=== PATIENT | female | born 1965 | race Caucasian/White ===

== ENCOUNTER 2018-02-04 13:50 | Emergency (ER) | payer MEDICARE ==
[2018-02-04] MEDS ORDERED: KETOROLAC TROMETHAMINE INJ/PF 30 MG/1 ML SDV IM ONE (15:58)
--- NOTE | 2018-02-04 16:01 | ER Document Report ---
ED Fall - General Chief Complaint: Fall Injury Stated Complaint: FALL INJURY Time Seen by Provider: 02/04/18 15:48 Mode of Arrival: Ambulatory Information source: Patient TRAVEL OUTSIDE OF THE [place] IN LAST 30 DAYS: No - HPI Patient complains to provider of: FALL, PAIN TO LEFT RIBS, WRIST, KNEE AND LOW BACK Occurred: Yesterday Where: Home Notes: Patient is here with complaints of pain after falling yesterday. She states that she stepped in a hole that 1 of her dog had dug in her yard yesterday while walking and fell on her left side. Since that time she has left rib pain , left wrist pain, left knee pain. She also complains of some mild low back pain. She has had prior lumbar surgery with fusion and hardware. She has chronic pain and is on MS Contin as well as immediate release oxycodone. She denies striking her head. She denies loss of consciousness. She denies blurred or loss vision. She denies numbness, Unruly, weakness. No abdominal pain. No nausea, vomiting, diarrhea. No bowel or bladder dysfunction. Pain is worse with movement, better with rest. She denies any other complaints at this time. - Related data Allergies/Adverse Reactions: adhesive tape Allergy (Verified 02/04/18 13:52) meperidine [From Demerol] Allergy (Verified 02/04/18 13:51) Past Medical History - Social History Smoking Status: Unknown if Ever Smoked Family History: Reviewed & Not Pertinent Review of Systems - Review of Systems -: Yes All other systems reviewed and negative Physical Exam - Vital signs Vitals: Temp Pulse Resp BP Pulse Ox 98.2 F 85 18 142/99 H 98 02/04/18 14:37 02/04/18 14:37 02/04/18 14:37 02/04/18 14:37 02/04/18 14:37 - Notes Notes: GENERAL: alert, cooperative, nontoxic, no distress. HEAD: normocephalic, atraumatic EYES: conjunctiva pink without discharge, no external redness or swelling. EARS: no external swelling, no external redness. No hemotympanum EM NOSE: atraumatic, no external swelling. No bleeding MOUTH/THROAT: mucous membranes moist and pink, posterior pharynx without erythema, swelling, exudate. No trismus or drooling. NECK: soft, supple, full range of motion, no meningismus. No midline tenderness step-offs or crepitus to palpation of the cervical spine. CHEST: no distress, lungs clear and equal throughout. No wheezing, rales, rhonchi. Redness palpation of the left lateral ribs. No crepitus. No bruising. CARDIAC: regular rate and rhythm, no murmur, normal capillary refill, normal pulses. No peripheral edema noted. ABDOMEN: Soft, nontender. No ecchymosis. BACK: full range of motion, no CVA tenderness. No midlinestep-offs or crepitus to palpation of the thoracic or lumbar spine. Mild midline lumbar spinal tenderness to palpation. EXTREMITIES: full range of motion of all extremities. No redness, no swelling. NEURO: alert and oriented x 3, no focal deficits, full range of motion of all extremities. Normal sensation bilaterally. Normal strength bilaterally. PYSCH: appropriate mood, affect. Patient is cooperative. SKIN: pink, warm, dry, no rash. Course - Re-evaluation Re-evalutation: 02/04/18 17:33 The patient is nontoxic appearing with stable vitals. The patient tripped and fell yesterday at home injuring her left ribs left wrist and left knee. She is chronic back pain states that her back is hurting somewhat more than normal as well. She has a nonfocal neuro exam with no signs of cauda equina. Lungs are clear. She is not hypoxic. She has no signs of significant trauma. She has no abdominal tenderness on exam. X-rays of the left ribs with chest, left wrist , left knee, lumbar spine show no acute findings per the radiologist. The patient is currently on chronic pain medication including MS Contin and oxycodone. She states that she spoke with her pain specialist who told her that we could write her for more pain medication if it was for an acute problem. That I do not feel comfortable writing for any sort of narcotic medication when she is on high-dose narcotics already, and she should discuss this with her pain management doctor if she feels that she needs further narcotic medication. I am happy to write her for NSAIDs to help augment her pain control medication she already has at home. She is given a shot of Toradol here and states she feels significantly better and would like a prescription for Toradol to go home with. I explained that I can write her a short course of Toradol orally but that she should not take her Celebrex while she is taking the Toradol. She verbalized understanding of this. The patient is noted to have elevated blood pressure during today's emergency department visit. The patient was informed of this finding. The patient was instructed that this may be related to pre-hypertension and requires further evaluation with a primary care provider. The patient has no hypertensive symptoms at this time. The patient's emergency department workup and current diagnosis were explained to the patient and or family. Follow-up instructions were provided. Medications if prescribed were discussed. Instructions for when to return to the emergency department including specific worrisome symptoms were discussed with the patient and/or family. - Vital Signs Vital signs: Temp Pulse Resp BP Pulse Ox 98.2 F 85 18 142/99 H 98 02/04/18 14:37 02/04/18 14:37 02/04/18 14:37 02/04/18 14:37 02/04/18 14:37 - Diagnostic Test Radiology reviewed: Image reviewed, Reports reviewed - Left ribs with chest, left knee, left wrist, lumbar spine show no acute abnormality per the radiologist. Discharge - Discharge Clinical Impression: Contusion of rib on left side Qualifiers: Encounter type: initial encounter Qualified Code(s): S20.212A - Contusion of left front wall of thorax, initial encounter Left wrist sprain Qualifiers: Encounter type: initial encounter Qualified Code(s): S63.502A - Unspecified sprain of left wrist, initial encounter Left knee sprain Qualifiers: Encounter type: initial encounter Involved ligament of knee: other ligament Qualified Code(s): S83.8X2A - Sprain of other specified parts of left knee, initial encounter Condition: Stable Disposition: HOME, SELF-CARE Instructions: Ice & Elevation ([facility]), Chest Wall Pain ([facility]), Wrist Sprain ([facility]) Additional Instructions: Take medications as prescribed. Do not take your Celebrex while taking the Toradol. Rest, ice, elevate injuries. Follow-up with your doctor if not better in 1 week, sooner for increasing pain, high fever, difficulty breathing,' s, tingling, weakness, difficulty controlling her bowels or bladder, or for any further concerns. Your blood pressure was elevated during today's visit. Have this rechecked with your doctor. Prescriptions: Ketorolac Tromethamine [Toradol 10 mg Tablet] 10 mg PO Q6HP PRN #12 tablet PRN Reason: Forms: Elevated Blood Pressure, Smoking Cessation Education
--- NOTE | 2018-02-04 16:30 | RADIOLOGY REPORT (SQ) ---
EXAM DESCRIPTION: L SPINE WHOLE COMPLETED DATE/TIME: 02/04/2018 4:17 pm REASON FOR STUDY: FALL, PAIN COMPARISON: None. NUMBER OF VIEWS: Five views including obliques. TECHNIQUE: AP, lateral, oblique, and sacral radiographic images acquired of the lumbar spine. LIMITATIONS: None. FINDINGS: MINERALIZATION: Normal. SEGMENTATION: Normal. No transitional anatomy. ALIGNMENT: Normal. VERTEBRAE: Maintained height. No fracture or worrisome bone lesion. DISCS: Preserved height. No significant osteophytes or end plate irregularity. POSTERIOR ELEMENTS: Pedicles and facets are intact. No pars defect or posterior arch defects. Juan ectomy changes at L5. HARDWARE: Posterior rods from L4-S1 with screws through the pedicles. PARASPINAL SOFT TISSUES: Normal. PELVIS: Intact as visualized. No fractures or worrisome bone lesions. SI joints intact. OTHER: No other significant finding. IMPRESSION: Surgical changes with no acute abnormality. TECHNICAL DOCUMENTATION: JOB ID: [id number] [employer]- All Rights Reserved Reading location - IP/workstation name: [email or web address]
--- NOTE | 2018-02-04 16:58 | RADIOLOGY REPORT (SQ) ---
EXAM DESCRIPTION: RIBS LEFT W/PA CHEST COMPLETED DATE/TIME: 02/04/2018 4:46 pm REASON FOR STUDY: FALL, PAIN COMPARISON: None. TECHNIQUE: Frontal view of the chest and additional views of the left ribs acquired. NUMBER OF VIEWS: Three view. LIMITATIONS: None. FINDINGS: FRONTAL CXR: No pneumothorax. No pleural effusion. No atelectasis or infiltrates. RIBS: No displaced rib fractures. No lytic or blastic bony lesions. OTHER: No other significant finding. IMPRESSION: NO PNEUMOTHORAX. NO DISPLACED RIB FRACTURES. COMMENT: SITE OF TRAUMA/COMPLAINT MARKED/STAMP COMPLETED: YES. TECHNICAL DOCUMENTATION: JOB ID: [id number] [employer]- All Rights Reserved Reading location - IP/workstation name: [email or web address]
--- NOTE | 2018-02-04 16:59 | RADIOLOGY REPORT (SQ) ---
EXAM DESCRIPTION: WRIST LEFT 3 VIEWS COMPLETED DATE/TIME: 02/04/2018 4:46 pm REASON FOR STUDY: FALL, PAIN COMPARISON: None. NUMBER OF VIEWS: Three views. TECHNIQUE: AP, lateral, and oblique radiographic images acquired of the left wrist. LIMITATIONS: None. FINDINGS: MINERALIZATION: Normal. BONES: No acute fracture or dislocation. No worrisome bone lesions. Normal alignment. SOFT TISSUES: No soft tissue swelling. No foreign body. OTHER: No other significant finding. IMPRESSION: NEGATIVE STUDY OF THE LEFT WRIST. NO RADIOGRAPHIC EVIDENCE OF ACUTE INJURY. TECHNICAL DOCUMENTATION: JOB ID: [id number] [employer]- All Rights Reserved Reading location - IP/workstation name: [email or web address]
--- NOTE | 2018-02-04 17:00 | RADIOLOGY REPORT (SQ) ---
EXAM DESCRIPTION: KNEE LEFT 3 VIEWS COMPLETED DATE/TIME: 02/04/2018 4:46 pm REASON FOR STUDY: FALL, PAIN COMPARISON: None. NUMBER OF VIEWS: Three views. TECHNIQUE: AP, lateral, and sunrise patella radiographic images acquired of the left knee. LIMITATIONS: None. FINDINGS: MINERALIZATION: Normal. BONES: No acute fracture or dislocation. No worrisome bone lesions. JOINT: No effusion. SOFT TISSUES: No soft tissue swelling. No radio-opaque foreign body. OTHER: No other significant finding. IMPRESSION: NEGATIVE STUDY OF THE LEFT KNEE. NO RADIOGRAPHIC EVIDENCE OF ACUTE INJURY. TECHNICAL DOCUMENTATION: JOB ID: [id number] [employer]- All Rights Reserved Reading location - IP/workstation name: [email or web address]
[2018-02-04 17:52] VITALS: BP 137/93
== END 2018-02-04 17:52 | disposition home or self-care (01) ==
LOC: ER 13:50
DX: S83.92XA Sprain of unspecified site of left knee, initial encounter (principal); S63.502A Unspecified sprain of left wrist, initial encounter; S20.212A Contusion of left front wall of thorax, initial encounter; W01.0XXA Fall on same level from slipping, tripping and stumbling without subsequent striking against object, initial encounter; Y92.007 Garden or yard of unspecified non-institutional (private) residence as the place of occurrence of the external cause; R03.0 Elevated blood-pressure reading, without diagnosis of hypertension; M54.5 Low back pain; Z79.891 Long term (current) use of opiate analgesic; Z98.1 Arthrodesis status; Z91.048 Other nonmedicinal substance allergy status; Z88.5 Allergy status to narcotic agent
CPT/HCPCS: 99283; 96372; 73562; 72110; 71101; 73110; J1885

== ENCOUNTER → 2018-10-08 | Outpatient (CLI) | payer OTHER, MEDICARE ==
[2018-10-08 13:38] LABS: INTERNATIONAL RATION (INR) 0.95; PROTHROMBIN TIME 13.1 SEC (11.4-15.4)
[2018-10-08 13:39] LABS: PARTIAL THROMBOPLASTIN TIME 32.9 SEC (23.5-35.8)
[2018-10-08 13:40] LABS: APPEARANCE,URINE CLEAR; BILIRUBIN,URINE NEGATIVE (NEGATIVE); COLOR,URINE YELLOW; GLUCOSE, URINE NEGATIVE (NEGATIVE); KETONES,URINE NEGATIVE (NEGATIVE); LEUKOCYTE ESTERASE,URINE NEGATIVE (NEGATIVE); NITRITE,URINE NEGATIVE (NEGATIVE); PROTEIN,URINE NEGATIVE (NEGATIVE); URINE SPECIFIC GRAVITY 1.015; UROBILINOGEN,URINE NEGATIVE mg/dL (<2.0)
[2018-10-08 14:08] LABS: ABSOLUTE EOSINOPHILS # (AUTO) 0.1 10^3/uL (0.0-0.6); ABSOLUTE LYMPHOCYTES (AUTO) 1.8 10^3/uL (0.5-4.7); ABSOLUTE MONOCYTES (AUTO) 0.3 10^3/uL (0.1-1.4); ABSOLUTE NEUT (AUTO) 3.6 10^3/uL (1.7-8.2); BASOPHILS % (AUTO) 0.4 % (0-2); EOSINOPHILS % (AUTO) 1.3 % (0-6); HEMATOCRIT 42.2 % (36.0-47.0); HEMOGLOBIN 14.7 g/dL (12.0-15.5); LYMPHOCYTES % (AUTO) 31.5 % (13-45); MEAN CORPUSCULAR HEMOGLOBIN 32.2 pg (27.0-33.4); MEAN CORPUSCULAR HGB CONC 34.8 g/dL (32.0-36.0); MEAN CORPUSCULAR VOLUME 92 fl (80-97); MONOCYTES % (AUTO) 5.8 % (3-13); PLATELET COUNT 361 10^3/uL (150-450); RED BLOOD COUNT 4.57 10^6/uL (3.72-5.28); RED CELL DISTRIBUTION WIDTH 13.3 % (11.5-14.0); TOTAL CELLS COUNTED % (AUTO) 100 %; WHITE BLOOD COUNT 5.8 10^3/uL (4.0-10.5)
== END ==
LOC: OD 12:14
PROVIDERS: ATTEND Student in an Organized Health Care Education/Training Program
DX: M96.1 Postlaminectomy syndrome, not elsewhere classified (principal)
CPT/HCPCS: 36415; 81001; 85025; 85610; 85730

== ENCOUNTER 2018-10-29 05:58 | Day surgery (SDC) | payer OTHER, MEDICARE ==
--- NOTE | 2018-10-25 13:22 | RADIOLOGY REPORT (SQ) ---
EXAM DESCRIPTION: CHEST PA/LATERAL COMPLETED DATE/TIME: 10/25/2018 1:15 pm REASON FOR STUDY: PRE-OP COMPARISON: None. EXAM PARAMETERS: NUMBER OF VIEWS: two views TECHNIQUE: Digital Frontal and Lateral radiographic views of the chest acquired. RADIATION DOSE: NA LIMITATIONS: none FINDINGS: LUNGS AND PLEURA: No opacities, masses or pneumothorax. No pleural effusion. MEDIASTINUM AND HILAR STRUCTURES: No masses or contour abnormalities. HEART AND VASCULAR STRUCTURES: Heart normal size. No evidence for failure. BONES: No acute findings. HARDWARE: None in the chest. OTHER: No other significant finding. IMPRESSION: NO SIGNIFICANT RADIOGRAPHIC FINDING IN THE CHEST. TECHNICAL DOCUMENTATION: JOB ID: [id number] [employer]- All Rights Reserved Reading location - IP/workstation name: [email or web address]
--- NOTE | 2018-10-25 13:33 | EKG REPORT ---
SEVERITY:- NORMAL ECG - SINUS RHYTHM : Confirmed by: Johnny Best MD 25-Oct-2018 13:32:48
[~2018-10-29 05:58] MED LIST: CEFAZOLIN 1 GM/D5W RTU 1 GM/50 ML RTUPB IV ONE; CEFAZOLIN 1 GM/D5W RTU 1 GM/50 ML RTUPB IV PRN; LACTATED RINGERS 1000 ML IV PRN; LIDOCAINE 0.5% INJ-PF (5 MG/ML) 50 ML SDV SUBCUT PRN
[2018-10-29] MEDS ORDERED: ALBUTEROL SULFATE 0.083% NEB 2.5 MG/3 ML AMPUL NEB ONE (06:51)
[2018-10-29] MEDS ORDERED: MIDAZOLAM 2 MG/2 ML INJ ONE (06:55)
[2018-10-29] MEDS ORDERED: FENTANYL CITRATE INJ/PF 100 MCG/2 ML AMPUL ONE (06:55)
[2018-10-29] MEDS ORDERED: ONDANSETRON HCL INJ/PF 4 MG/2 ML SDV ONE (06:55)
[2018-10-29] MEDS ORDERED: PROPOFOL INJ 200 MG/20 ML VIAL IV ONE ×2 (06:56→10:01)
[2018-10-29] MEDS: BUPIVACAINE HCL 0.25% /EPINEPHRINE INJ/PF 30 ML SDV ONE ×2 (07:51→08:09)
[2018-10-29] MEDS: SODIUM BICARBONATE 8.4% INJ 50 MEQ/50 ML DISP.SYRIN ONE ×2 (07:53→08:09)
[2018-10-29] MEDS: LIDOCAINE 1% INJ-PF (10 MG/ML) 30 ML SDV ONE ×2 (07:54→08:09)
[2018-10-29] MEDS ORDERED: DIPHENHYDRAMINE HCL 50 MG/ML VIAL IV PRN (08:30)
[2018-10-29] MEDS ORDERED: FENTANYL CITRATE INJ/PF 100 MCG/2 ML AMPUL IV PRN ×3 (08:30)
[2018-10-29] MEDS ORDERED: MORPHINE SULFATE 10 MG/ML INJ IV PRN (08:30)
[2018-10-29] MEDS ORDERED: PROMETHAZINE HCL INJ 25 MG/1 ML VIAL IV PRN (08:30)
[2018-10-29] MEDS ORDERED: BUPIVACAINE HCL 0.25% /EPINEPHRINE INJ/PF 30 ML SDV ONE (08:32)
[2018-10-29] MEDS ORDERED: CEFAZOLIN INJ 1 GM VIAL ONE (09:49)
[2018-10-29] MEDS: FENTANYL CITRATE INJ/PF 100 MCG/2 ML AMPUL ONE ×2 (10:00→10:05)
[2018-10-29] MEDS: HYDROMORPHONE HCL INJ/PF 2 MG/ML AMPULE ONE ×2 (10:20→10:40)
--- NOTE | 2018-10-29 10:29 | OPERATIVE REPORT E ---
Operative Report NAME: ORESTES FERNANDEZ : 1965 AGE: 53Y DATE OF SURGERY: 10/29/2018 ROOM: PREOPERATIVE DIAGNOSIS: 1. POSTLAMINECTOMY PAIN SYNDROME. 2. LUMBAR RADICULOPATHY. POSTOPERATIVE DIAGNOSIS: 1. POSTLAMINECTOMY PAIN SYNDROME. 2. LUMBAR RADICULOPATHY. OPERATION: Spinal cord stimulator implantation with percutaneous with dual lead, NIPG with [employer] system. SURGEON: ASHLEY ADAMS M.D. INFORMATION SYSTEMS PROJECT MANAGER: Veto Zuluaga M.D. ANESTHESIA: MAC. COMPLICATIONS: None. PROCEDURE IN DETAIL: After obtaining informed consent, I advised the patient of all the risks and benefits including serious neurologic injury, bleeding, infection, spinal fluid leak, allergic reaction, paralysis, nerve injury, , and failure to obtain satisfactory relief. She was taken to the operating room, placed comfortably in the prone position. MAC anesthesia was administered after application of monitoring. She was then prepped with ChloraPrep x2 and then draped after appropriate drying time. She was then evaluated at fluoroscopy and adequate space was found at T12-L1. The skin over both the pre-marked buttock incision on the right and the midline were anesthetized with 1% lidocaine with bicarbonate followed by 0.25% bupivacaine with epinephrine. Beginning at the midline incision, sharp and blunt dissection was performed down to the fascia. Using a left paramedian approach, a 14-gauge Tuohy needle was placed into the epidural space at T12-L1 level. Loss of resistance and saline was utilized beginning with the first needle. The electrode was advanced under fluoroscopic guidance to the mid of T8, being positioned in the midline. The second lead was placed with the second needle using the same technique with loss of resistance to saline using a right paramedian approach on the right side. Lateral views were taken that initially showed satisfactory placement. The leads were then tested and appropriate stimulation was found after discussion with the patient. Once again, the leads were then secured using pursestrings with anchors in place. These anchors were then sutured in place. The needles were removed sequentially. The pursestrings were secured and the anchor was placed and secured as well. While lead positioning was occurring, Veto Zuluaga M.D. was assisting in creating the pocket for the new pulse generator. As soon as the pocket was made, proper hemostasis was confirmed. The skin between tunneling was then performed using anesthesia 1% lidocaine and standard tunneling tool. Both incisions were felt to be satisfactory and proper hemostasis was confirmed. The wires were easily placed in the midline, stitched within the pocket and connected to the pulse generator, which was then tested and appropriate communication was made. All connections were secure. The generator was then placed in the pocket and assessed and found to be satisfactory. Position was again checked via fluoroscopy in both lateral and AP views. The wound were then copiously irrigated. The areas were then closed with interrupted vertical mattress suture using 3-0 Vicryl, arielle were not used. A 4-0 running subcuticular stitch was done in the midline. After appropriate placement, tape and Dermabond with *------* were used. OpSite dressings were then placed over the tape. The patient was taken to the PACU for further postoperative wound care and monitoring. DICTATING PHYSICIAN: ASHLEY ADAMS M.D. [id number] PHY#: [id number] ID: [id number] JOB#: [id number] ACCT: [id number] cc:ASHLEY ADAMS M.D. >
[2018-10-29] MEDS ORDERED: OXYCODONE HCL SR 10 MG TABLET PO ONE (10:43)
[2018-10-29] MEDS ORDERED: OXYCODONE HCL IR 5 MG TABLET ONE (10:47)
[2018-10-29] MEDS ORDERED: KETOROLAC TROMETHAMINE INJ/PF 30 MG/1 ML SDV ONE (11:40)
[2018-10-29] MEDS ORDERED: KETOROLAC TROMETHAMINE INJ/PF 30 MG/1 ML SDV IM ONE (12:00)
[2018-10-29 12:53] VITALS: BP 99/57
--- NOTE | 2018-10-29 13:13 | RADIOLOGY REPORT (SQ) ---
EXAM DESCRIPTION: THORACOLUMBAR SPINE AP/LAT COMPLETED DATE/TIME: 10/29/2018 12:59 pm REASON FOR STUDY: SPINAL STIMULATOR PLCMT DONE IN OR ASST WITH FLUORO G89.4 CHRONIC PAIN SYNDROME COMPARISON: None. FLUOROSCOPY TIME: 4.4 minutes 8 images saved to PACS. TECHNIQUE: Intra-operative images acquired during surgical procedure to evaluate progress. NUMBER OF IMAGES: 8 LIMITATIONS: None. FINDINGS: Images reveal epidural spinal lead placement in the thoracic spine, precise level not dete rmined based on limited field of view imaging. IMPRESSION: IMAGE(S) OBTAINED DURING PROCEDURE. COMMENT: Quality ID [id number]: Final reports for procedures using fluoroscopy that document radiation exp osure indices, or exposure time and number of fluorographic images (if radiation exposure indices are not available) Please consult full operative report of the attending physician for description of the procedure. TECHNICAL DOCUMENTATION: JOB ID: [id number] [employer]- All Rights Reserved Reading location - IP/workstation name: [email or web address]
== END 2018-10-29 12:20 | disposition home or self-care (01) ==
LOC: OROUT 05:58
PROVIDERS: ATTEND Student in an Organized Health Care Education/Training Program
DX: M96.1 Postlaminectomy syndrome, not elsewhere classified (principal); M54.16 Radiculopathy, lumbar region; I10 Essential (primary) hypertension; K21.9 Gastro-esophageal reflux disease without esophagitis; G89.4 Chronic pain syndrome; M79.10 Myalgia, unspecified site; F90.9 Attention-deficit hyperactivity disorder, unspecified type; Z79.899 Other long term (current) drug therapy; Z79.1 Long term (current) use of non-steroidal anti-inflammatories (NSAID); F45.42 Pain disorder with related psychological factors; Z79.891 Long term (current) use of opiate analgesic; Z87.891 Personal history of nicotine dependence
CPT/HCPCS: 63650; 63685; C1820; 1936; 71046; 72080; 81025; 93005; 93010; 94640; C1778; J0690; J1170; J1885; J2250; J2405; J2704; J3010; J3490

== ENCOUNTER 2019-04-29 09:05 | Day surgery (SDC) | payer OTHER, MEDICARE ==
--- NOTE | 2019-04-18 10:08 | RADIOLOGY REPORT (SQ) ---
EXAM DESCRIPTION: CHEST PA/LATERAL COMPLETED DATE/TIME: 04/18/2019 9:53 am REASON FOR STUDY: PRE-OP COMPARISON: Two-view chest 10/25/2018 EXAM PARAMETERS: NUMBER OF VIEWS: two views TECHNIQUE: Digital Frontal and Lateral radiographic views of the chest acquired. RADIATION DOSE: NA LIMITATIONS: none FINDINGS: LUNGS AND PLEURA: No opacities, masses or pneumothorax. No pleural effusion. MEDIASTINUM AND HILAR STRUCTURES: No masses or contour abnormalities. HEART AND VASCULAR STRUCTURES: Heart normal size. No evidence for failure. BONES: No acute findings. HARDWARE: Dorsal column stimulator electrodes over the midthoracic spine OTHER: No other significant finding. IMPRESSION: NO SIGNIFICANT RADIOGRAPHIC FINDING IN THE CHEST. TECHNICAL DOCUMENTATION: JOB ID: [id number] [employer]- All Rights Reserved Reading location - IP/workstation name: [email or web address]
[2019-04-18 10:49] LABS: APPEARANCE,URINE SLIGHTLY-CLOUDY; BILIRUBIN,URINE NEGATIVE (NEGATIVE); COLOR,URINE YELLOW; GLUCOSE, URINE NEGATIVE (NEGATIVE); KETONES,URINE NEGATIVE (NEGATIVE); LEUKOCYTE ESTERASE,URINE NEGATIVE (NEGATIVE); NITRITE,URINE NEGATIVE (NEGATIVE); PROTEIN,URINE NEGATIVE (NEGATIVE); URINE SPECIFIC GRAVITY 1.009; UROBILINOGEN,URINE NEGATIVE mg/dL (<2.0)
[2019-04-18 10:49] LABS: HEMOGLOBIN 15.9 g/dL (12.0-15.5); MEAN CORPUSCULAR HEMOGLOBIN 31.5 pg (27.0-33.4); MEAN CORPUSCULAR HGB CONC 33.9 g/dL (32.0-36.0); MEAN CORPUSCULAR VOLUME 93 fl (80-97); PLATELET COUNT 351 10^3/uL (150-450); RED BLOOD COUNT 5.06 10^6/uL (3.72-5.28); RED CELL DISTRIBUTION WIDTH 12.8 % (11.5-14.0); WHITE BLOOD COUNT 7.5 10^3/uL (4.0-10.5)
[2019-04-18 10:53] LABS: INTERNATIONAL RATION (INR) 0.88; PROTHROMBIN TIME 12.4 SEC (11.4-15.4)
[2019-04-18 10:54] LABS: PARTIAL THROMBOPLASTIN TIME 31.5 SEC (23.5-35.8)
--- NOTE | 2019-04-18 22:39 | EKG REPORT ---
SEVERITY:- ABNORMAL ECG - SINUS RHYTHM : Confirmed by: Federico Bates 18-Apr-2019 22:39:10
[~2019-04-29 09:05] MED LIST changes: -CEFAZOLIN 1 GM/D5W RTU 1 GM/50 ML RTUPB IV ONE
[2019-04-29] MEDS ORDERED: CEFAZOLIN 1 GM/D5W RTU 1 GM/50 ML RTUPB IV ONE (09:17)
[2019-04-29] MEDS ORDERED: SODIUM BICARBONATE 8.4% INJ 50 MEQ/50 ML DISP.SYRIN ONE (10:36)
[2019-04-29] MEDS ORDERED: LIDOCAINE 1% INJ-PF (10 MG/ML) 30 ML SDV ONE ×2 (10:36→10:44)
[2019-04-29] MEDS ORDERED: BUPIVACAINE HCL 0.5%-EPI 1:200000 INJ/PF 30 ML VIAL ONE (10:37)
[2019-04-29] MEDS ORDERED: FENTANYL CITRATE INJ/PF 100 MCG/2 ML AMPUL ONE (11:14)
[2019-04-29] MEDS ORDERED: MIDAZOLAM 2 MG/2 ML INJ ONE (11:14)
[2019-04-29] MEDS ORDERED: PROPOFOL INJ 200 MG/20 ML VIAL IV ONE (11:15)
[2019-04-29] MEDS ORDERED: ONDANSETRON HCL INJ/PF 4 MG/2 ML SDV IV PRN (11:51)
[2019-04-29] MEDS ORDERED: DIPHENHYDRAMINE HCL 50 MG/ML VIAL IV PRN (11:51)
[2019-04-29] MEDS ORDERED: OXYCODONE-ACETAMINOPHEN 5-325 MG TABLET PO PRN ×2 (11:51)
[2019-04-29] MEDS ORDERED: FENTANYL CITRATE INJ/PF 100 MCG/2 ML AMPUL IV PRN (11:51)
[2019-04-29] MEDS ORDERED: PROMETHAZINE HCL INJ 25 MG/1 ML VIAL IV PRN ×2 (11:51)
[2019-04-29] MEDS ORDERED: CEFAZOLIN INJ 1 GM VIAL ONE (12:25)
[2019-04-29] MEDS: FENTANYL CITRATE INJ/PF 100 MCG/2 ML AMPUL ONE ×2 (12:32→12:41)
[2019-04-29] MEDS: HYDROMORPHONE HCL INJ/PF 2 MG/ML AMPULE ONE ×2 (12:34→12:40)
[2019-04-29] MEDS ORDERED: OXYCODONE-ACETAMINOPHEN 5-325 MG TABLET ONE (13:05)
[2019-04-29] MEDS ORDERED: OXYCODONE HCL IR 5 MG TABLET ONE ×2 (13:07→13:15)
--- NOTE | 2019-04-29 13:19 | OPERATIVE REPORT E ---
Operative Report NAME: ORESTES FERNANDEZ : 1965 AGE: 53Y DATE OF SURGERY: 04/29/2019 ROOM: PREOPERATIVE DIAGNOSIS: Battery site pain. POSTOPERATIVE DIAGNOSIS: Battery site pain. OPERATION: Battery site revision. SURGEON: ASHLEY ADAMS M.D. WAREHOUSE ASSOCIATE DRIVER: Veto Johns M.D. ANESTHESIA: MAC. COMPLICATIONS: None. PROCEDURE IN DETAIL: After obtaining informed consent and advising the patient of the risks and benefits, including serious neurological injury, bleeding, infection, allergic reaction, and , she was taken to the operating room. She was placed comfortably in a prone position. Comfort was assessed visually and verbally. She was then prepped with chlorhexidine with suitable drying time prior to draping. The pulse generator was readily palpable *------* seen under fluoroscopy. The previous incision was anesthetized with 1% lidocaine with bicarb followed by bupivacaine 0.25% with epinephrine. Sharp and blunt dissection was performed down to the pulse generator which was readily identified. The pulse generator was placed outside the pocket. Electrocautery was minimally necessary for hemostasis. The old generator was removed and placed to the side. A small relaxing incision was made along the lateral and inferior part of the pocket to allow the pulse generator to be more inferior and lateral than prior. It was connected to the electrodes and *------* secured. The generator was placed in the pocket. The impedance was tested and felt to be satisfactory. Good connectivity with the generator was obtained. The 2-0 nylon were then used to close the inferior edge of the pocket to not allow movement of the pulse generator. It was then closed with interrupted vertical mattress sutures of 3-0 Polysorb. The skin came together nicely. The region was cleansed followed by placement of 2-0 nylon running vertical mattress. When this was dry a suitable Tegaderm sponge dressing was placed. She was taken to the PACU for postoperative care and monitoring. DICTATING PHYSICIAN: ASHLEY ADAMS M.D. [id number] PHY#: [id number] ID: [id number] JOB#: [id number] ACCT: [id number] cc:ASHLEY ADAMS M.D. >
--- NOTE | 2019-04-29 13:38 | RADIOLOGY REPORT (SQ) ---
EXAM DESCRIPTION: NO CHG FLUORO; SPINE SINGLE VIEW COMPLETED DATE/TIME: 04/29/2019 1:25 pm REASON FOR STUDY: STIMULATOR BATTERY EXCHANGE ASST W/ FLUORO IN OR COMPARISON: None. FLUOROSCOPY TIME: 0 recorded minutes, total radiation dose 0.25 mGy To Images saved to PACS LIMITATIONS: None. PROCEDURE: The images show the stimulator. FINDINGS: Stimulator battery exchange. Refer to operative note for further information. IMPRESSION: A stimulator battery exchange. Refer to operative note for further information. COMMENT: PQRS 6045F: Fluoroscopy time of the procedure is documented in the report. TECHNICAL DOCUMENTATION: JOB ID: [id number] [employer]- All Rights Reserved Reading location - IP/workstation name: [email or web address]
--- NOTE | 2019-04-29 13:38 | RADIOLOGY REPORT (SQ) ---
EXAM DESCRIPTION: NO CHG FLUORO; SPINE SINGLE VIEW COMPLETED DATE/TIME: 04/29/2019 1:25 pm REASON FOR STUDY: STIMULATOR BATTERY EXCHANGE ASST W/ FLUORO IN OR COMPARISON: None. FLUOROSCOPY TIME: 0 recorded minutes, total radiation dose 0.25 mGy To Images saved to PACS LIMITATIONS: None. PROCEDURE: The images show the stimulator. FINDINGS: Stimulator battery exchange. Refer to operative note for further information. IMPRESSION: A stimulator battery exchange. Refer to operative note for further information. COMMENT: PQRS 6045F: Fluoroscopy time of the procedure is documented in the report. TECHNICAL DOCUMENTATION: JOB ID: [id number] [employer]- All Rights Reserved Reading location - IP/workstation name: [email or web address]
--- NOTE | 2019-04-29 13:59 | EKG REPORT ---
SEVERITY:- ABNORMAL ECG - SINUS RHYTHM ST ELEVATION NONSPECIFIC. : Confirmed by: Johnny Best MD 29-Apr-2019 13:59:07
[2019-04-29] MEDS ORDERED: OXYCODONE HCL IR 5 MG TABLET PO PRN (14:02)
[2019-04-29 14:10] VITALS: BP 150/90
== END 2019-04-29 14:15 | disposition home or self-care (01) ==
LOC: OROUT 09:05
PROVIDERS: ATTEND Student in an Organized Health Care Education/Training Program
DX: T85.840A Pain due to nervous system prosthetic devices, implants and grafts, initial encounter (principal); Y83.9 Surgical procedure, unspecified as the cause of abnormal reaction of the patient, or of later complication, without mention of misadventure at the time of the procedure; G89.4 Chronic pain syndrome; M96.1 Postlaminectomy syndrome, not elsewhere classified; M54.16 Radiculopathy, lumbar region; M51.37 Other intervertebral disc degeneration, lumbosacral region; Z79.899 Other long term (current) drug therapy; Z79.1 Long term (current) use of non-steroidal anti-inflammatories (NSAID); I10 Essential (primary) hypertension; K21.9 Gastro-esophageal reflux disease without esophagitis; F32.9 Major depressive disorder, single episode, unspecified; F17.210 Nicotine dependence, cigarettes, uncomplicated
CPT/HCPCS: 93005 ×2; 36415; 85027; 85610; 85730; 81025; 81001; 71046; 72020; 93010 ×2; 00300; 63688; J2250; J3490 ×3; J0690 ×2; J3010; J1170; J2704; 300